=== PATIENT | male | born 1980 | race Caucasian/White ===

== ENCOUNTER → 2020-02-05 | Day surgery (SDC) | payer OTHER ==
[2020-01-31 11:21] LABS: Basophils # (auto) 0.1 10 ^3/uL (0-0.2); Basophils % (auto) 0.8 % (0.0-2.0); Eosinophils # (auto) 0.2 10 ^3/uL (0-0.8); Hematocrit 48.3 % (41.0-53.0); Hemoglobin 16.4 g/dL (13.5-17.5); Lymphocytes # (auto) 1.3 10 ^3/uL (0.4-5.4); Lymphocytes % (auto) 15.9 % (10.0-50.0); Mean Corpuscular Hemoglobin 30.9 pg (28.0-32.0); Mean Corpuscular Volume 90.9 fL (80.0-100.0); Monocytes # (auto) 0.6 10 ^3/uL (0-1.3); Monocytes % (auto) 7.7 % (0.0-12.0); Neutrophils # (auto) 6.1 10 ^3/uL (1.6-8.6); Neutrophils % (auto) 73.6 % (37.0-80.0); Nucleated Red Blood Cells % 0.1 %; Platelet Count (auto) 270 10^3/uL (140-450); Red Blood Cells 5.31 10^6/uL (4.5-5.90); Red Cell Distribution Width 13.9 % (11.8-14.3); White Blood Cell 8.3 10^3/uL (4.4-10.8)
[2020-01-31 11:25] LABS: Urine Bacteria FEW /hpf (None Seen); Urine Blood Negative /uL (Negative); Urine Mucus FEW (None Seen); Urine Specific Gravity 1.004 (1.001-1.035); Urine WBC 1 /hpf (0 - 3)
[2020-01-31 11:50] LABS: Potassium 4.2 mmol/L (3.5-5.1)
[2020-01-31 11:51] LABS: INR 0.97 (0.9-1.15); Partial Thromboplastin Time 27.1 sec (23.0-31.2)
[2020-01-31 11:59] LABS: Albumin 4.2 g/dL (3.4-5.0); BUN/Creatinine Ratio 7.4; Bilirubin, Total 0.7 mg/dL (0.2-1.0); Calcium 9.2 mg/dL (8.5-10.1); Total Protein 8.2 g/dL (6.4-8.2)
[~2020-02-05] VITALS: Ht 180.3 cm; Wt 90.7 kg
[~2020-02-05] MED LIST: AMPH10TA2 PO; BACITRACIN INJ 50000 UNIT VIAL ONE; BACITRACIN TOP OINT 1 UD PKG TOP ONE; BUPIVACAINE HCL 50 ML ONE; BUPR150T6 PO; DexAMETHasone SOD PHOS 10MG/1ML VIAL INJ ONE; HYDROmorphone HCL 2 MG/ML VL IV PRN; HYDROmorphone HCL 2 MG/ML VL ONE; LIDOCAINE 1% HCL (LOCAL ANESTH.) INJ 20ML MDV ONE; MIDAZOLAM HCL 1MG/1ML-2 ML VIAL ONE; MORPHINE SULFATE 4 MG/ML SYR/VIAL IV PRN; NEOMYCIN-BACITRACIN-POLYM 15GM TOP OINT TOP ONE; ONDANSETRON HCL 4 MG/2 ML VIAL IV PRN; ONDANSETRON HCL 4 MG/2 ML VIAL ONE; PRAZ1CAP48 PO; PROP10TA57 PO; PROPOFOL 10 MG/ML 20 ML IV ONE; ROCURONIUM 10MG/ML 10ML VIAL IV ONE; SODIUM CHLORIDE LOCK 10 ML ONE; SUCCINYLCHOLINE CHLORIDE 20 MG/ML 10ML VIAL IV ONE; TRAZ50TA2 PO; ceFAZolin 1GM/50ML 50 ML IV ONE; fentaNYL CITRATE 100 MCG/2 ML VL ONE; fentaNYL CITRATE 5 ML ONE
[2020-02-05 11:45] VITALS: BP 139/100
== END | disposition home or self-care (01) ==
LOC: SUR 06:09
PROVIDERS: ATTEND Orthopaedic Surgery Sports Medicine
DX: S83.512A Sprain of anterior cruciate ligament of left knee, initial encounter (principal); M23.232 Derangement of other medial meniscus due to old tear or injury, left knee; I10 Essential (primary) hypertension; F98.8 Other specified behavioral and emotional disorders with onset usually occurring in childhood and adolescence; F17.210 Nicotine dependence, cigarettes, uncomplicated; Z79.899 Other long term (current) drug therapy; Z20.828 Contact with and (suspected) exposure to other viral communicable diseases; Z98.890 Other specified postprocedural states; X58.XXXA Exposure to other specified factors, initial encounter; Y93.89 Activity, other specified; Y92.89 Other specified places as the place of occurrence of the external cause; Y99.8 Other external cause status
CPT/HCPCS: 20902; 29882; 29888; 36415; 73560; 80053; 81001; 85025; 85610; 85730; C1713; J0330; J0690; J1100; J1170; J2001; J2250; J2405; J2704; J3010; J3490; U0003; 76000